=== PATIENT | female | born 2000 | race Caucasian/White ===

== ENCOUNTER 2023-01-10 08:34 | Emergency (ER) | payer BC ==
[~2023-01-10] VITALS: Ht 68 cm; Wt 61.4 kg
[2023-01-10] MEDS ORDERED: ONDANSETRON 4 MG/2 ML (SDV) Z0FRAN ONE (09:10)
[2023-01-10] MEDS ORDERED: NS IV 1000 ML 1,000 ML IV STA (09:20)
--- NOTE | 2023-01-10 09:20 | ED Abdominal Pain ---
General Chief Complaint: Abdominal/GI Problems Stated Complaint: VOMITING | DIARRHEA | ABD PAIN Nursing Triage Note: PT AMBULATES TO ROOM #2 ACCOMPANIED BY MOTHER W/CC NAUSEA, VOMITING, AND DIARRHEA WITH ONSET AT APPROX 1700 ON 01/09/23. PT REPORTS SHE HAS BEEN EXPERIENCING APPROX X2 EPSIODES OF DIARRHEA AN HOUR SINCE ONSET WITH NAUSEA/VOMITING FOLOWING FLUID INTAKE. PT REPORTS RECENT C-DIFF EXPOSURE WHILE AT WORK ON 01/05/23. Source of Information: Patient Exam Limitations: No Limitations History of Present Illness Date Seen by Provider: Jan 10, 2023 Time Seen by Provider: 08:40 Initial Comments 22yoF with no pertinent PMH coming in due to a couple days of abdominal pain, nb/nb n/v, nb diarrhea. Denies fever, focal weakness, numbness, chest pain, shortness of breath, or any other concerns. 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 She is having some lower abdominal pain that is more crampy. She thought she was on her period, but her last menstrual period was 2 and half weeks ago. Allergies and Home Medications Allergies Coded Allergies: No Known Drug Allergies (Unverified , 01/10/23) Patient Home Medication List Home Medication List Reviewed: Yes Review of Systems Review of Systems Constitutional: No fever EENTM: No Symptoms Reported Respiratory: No Symptoms Reported Cardiovascular: No Symptoms Reported Gastrointestinal: See HPI Genitourinary: No Symptoms Reported Musculoskeletal: no symptoms reported Skin: no symptoms reported Psychiatric/Neurological: No Symptoms Reported Endocrine: No Symptoms Reported Hematologic/Lymphatic: No Symptoms Reported Past Qnyrzlv-Fkftou-Urvpvi Hx Patient Social History Tobacco Use?: No Smoking Status: Never a Smoker Substance use?: No Alcohol Use?: No Immunizations Up To Date Influenza Vaccine Up-to-Date: Yes; Up-to-Date First/Initial COVID19 Vaccinat: 2021 Second COVID19 Vaccination Trell: 2021 Physical Exam Vital Signs Vital Signs - First Documented 01/10/23 08:45 Temp 37.7 Pulse 97 Resp 15 B/P (MAP) 142/91 (108) Pulse Ox 97 O2 Delivery Room Air Capillary Refill : Less Than 3 Seconds Height/Weight/BMI Height: '" Weight: lbs. oz. kg; 132.00 BMI Method: General Appearance: WD/WN, no apparent distress HEENT: PERRL/EOMI, normal ENT inspection, pharynx normal Neck: non-tender, full range of motion, supple, normal inspection Respiratory: chest non-tender, lungs clear, normal breath sounds, no respiratory distress, no accessory muscle use Cardiovascular: regular rate, rhythm, no edema, no murmur Gastrointestinal: normal bowel sounds, soft; No distended, No guarding, No rebound; tenderness Extremities: normal range of motion, non-tender, normal inspection, no pedal edema, no calf tenderness, normal capillary refill Back: normal inspection, no CVA tenderness Neurologic/Psychiatric: no motor/sensory deficits, alert, normal mood/affect Skin: normal color, warm/dry Progress/Results/Core Measures Results/Orders Lab Results Laboratory Tests Test 01/10/23 09:05 Range/Units White Blood Count 8.2 4.3-11.0 10^3/uL Red Blood Count 4.39 3.80-5.11 10^6/uL Hemoglobin 13.5 11.5-16.0 g/dL Hematocrit 39 35-52 % Mean Corpuscular Volume 89 80-99 fL Mean Corpuscular Hemoglobin 31 25-34 pg Mean Corpuscular Hemoglobin Concent 35 32-36 g/dL Red Cell Distribution Width 12.0 10.0-14.5 % Platelet Count 214 130-400 10^3/uL Mean Platelet Volume 9.9 9.0-12.2 fL Immature Granulocyte % (Auto) 0 % Neutrophils (%) (Auto) 84 H 42-75 % Lymphocytes (%) (Auto) 6 L 12-44 % Monocytes (%) (Auto) 10 0-12 % Eosinophils (%) (Auto) 0 0-10 % Basophils (%) (Auto) 0 0-10 % Neutrophils # (Auto) 6.9 1.8-7.8 10^3/uL Lymphocytes # (Auto) 0.5 L 1.0-4.0 10^3/uL Monocytes # (Auto) 0.8 0.0-1.0 10^3/uL Eosinophils # (Auto) 0.0 0.0-0.3 10^3/uL Basophils # (Auto) 0.0 0.0-0.1 10^3/uL Immature Granulocyte # (Auto) 0.0 0.0-0.1 10^3/uL Neutrophils % (Manual) 85 % Lymphocytes % (Manual) 6 % Monocytes % (Manual) 6 % Eosinophils % (Manual) 0 % Basophils % (Manual) 0 % Band Neutrophils 3 % Blood Morphology Comment NORMAL Sodium Level 136 135-145 MMOL/L Potassium Level 3.7 3.6-5.0 MMOL/L Chloride Level 108 H 98-107 MMOL/L Carbon Dioxide Level 21 21-32 MMOL/L Anion Gap 7 5-14 MMOL/L Blood Urea Nitrogen 9 7-18 MG/DL Creatinine 0.92 0.60-1.30 MG/DL Estimat Glomerular Filtration Rate 91 BUN/Creatinine Ratio 10 Glucose Level 84 70-105 MG/DL Calcium Level 9.0 8.5-10.1 MG/DL Corrected Calcium 8.9 8.5-10.1 MG/DL Total Bilirubin 0.4 0.1-1.0 MG/DL Aspartate Amino Transf (AST/SGOT) 28 5-34 U/L Alanine Aminotransferase (ALT/SGPT) 27 0-55 U/L Alkaline Phosphatase 42 40-136 U/L Total Protein 7.1 6.4-8.2 GM/DL Albumin 4.1 3.2-4.5 GM/DL Lipase 7 L 8-78 U/L Serum Test, Qualitative NEGATIVE NEGATIVE My Orders Orders - OLGA LIDIA BAPTISTE MD Ondansetron Injection (Zofran Injectio (01/10/23 09:10) Ed Iv/Invasive Line Start (01/10/23 09:20) Comprehensive Metabolic Panel (01/10/23 09:20) Lipase (01/10/23 09:20) Ua Culture If Indicated (01/10/23 09:20) Hcg,Qualitative Serum (01/10/23 09:20) Cbc With Automated Diff (01/10/23 09:20) Ct Abd/Pelv W (Appendicitis) (01/10/23 09:20) Ondansetron Injection (Zofran Injectio (01/10/23 09:30) Ns Iv 1000 Ml (Sodium Chloride 0.9%) (01/10/23 09:20) Manual Differential (01/10/23 09:05) Iohexol Injection (Omnipaque 350 Mg/Ml 1 (01/10/23 09:45) Received Contrast (Hold Metformin- Contr (01/10/23 09:45) Ns (Ivpb) (Sodium Chloride 0.9% Ivpb Bag (01/10/23 09:45) C Difficile Ag + Toxin A/B. (01/10/23 09:59) Medications Given in ED Current Medications Medications Dose Ordered Sig/Nora Route Start Time Stop Time Status Last Admin Dose Admin Ondansetron HCl 4 mg ONCE ONCE IVP 01/10/23 09:30 01/10/23 09:31 DC 01/10/23 09:29 4 MG Vital Signs/I&O 01/10/23 08:45 Temp 37.7 Pulse 97 Resp 15 B/P (MAP) 142/91 (108) Pulse Ox 97 O2 Delivery Room Air Blood Pressure Mean: 108 Progress Progress Note : Progress Note 22-year-old female with above history coming in due to vomiting, diarrhea, abdominal pain. ABCs were intact and vitals were stable on presentation. Physical exam with abdominal tenderness but no signs of peritonitis. An IV was placed and basic labs were obtained and were significant for normal white blood cell count, normal creatinine, negative test. CT abdomen pelvis consistent with diarrhea-like illness. C. difficile sent and is pending. Patient otherwise well-appearing after receiving some IV fluids and nausea medicine. I believe she stable for discharge with outpatient follow-up. She was sent home with strict return precautions. Prescription sent for nausea medicines Diagnostic Imaging Diagonstic Imaging: CT (abd/pelvis) Comments NAME: DOMENIC MCDOWELL [facility] REC#: [id number] PT STATUS: REG ER : 2000 PHYSICIAN: OLGA LIDIA BAPTISTE MD ADMIT DATE: 01/10/23/ER Draft Date of Exam:01/10/23 CT ABD/PELV W (APPENDICITIS) PROCEDURE: CT abdomen and pelvis with contrast, rule out appendicitis. TECHNIQUE: Multiple contiguous axial images were obtained through the abdomen and pelvis after the administration of intravenous contrast. All CT scans use one or more of the following dose optimizing techniques: automated exposure control, MA and/or KvP adjustment based on patient size and exam type or iterative reconstruction. INDICATION: Vomiting and diarrhea with mid abdominal pain. No prior studies are available for comparison. FINDINGS: The lung bases are clear. The liver and gallbladder are unremarkable. There is no biliary ductal dilatation. Pancreas and spleen are unremarkable. No adrenal mass is detected. Kidneys are unremarkable. There is no hydronephrosis. Aorta is nonaneurysmal. There are some fluid-filled small bowel loops throughout the abdomen as well as fluid-filled colon, particularly the right colon. The pattern does not appear to be obstructive at this time. No transition is identified. Appendix is not identified with certainty in the right lower quadrant. No inflammatory changes in the right lower quadrant are identified. No free fluid or focal fluid collection is identified. Uterus is unremarkable. Bladder is decompressed. IMPRESSION: Nonspecific fluid-filled small and large bowel consistent with enterocolitis and diarrheal state. No definite CT findings of acute appendicitis are identified. Study is otherwise unremarkable. Dictated on workstation # [id number] Dict: 01/10/23 1015 Trans: 01/10/23 1020 [id number] Interpreted by: FERDINAND ONTIVEROS MD Electronically signed by: Departure Impression Primary Impression: Vomiting and diarrhea Disposition: HOME, SELF-CARE Condition: Stable Departure-Patient Inst. Decision time for Depature: 10:45 Referrals: CONSUELO CORBETT MD (PCP/Family) Primary Care Physician Patient Instructions: Diarrhea, Adult ED Add. Discharge Instructions: It does look like you have gastroenteritis on your CT imaging. This could be from C. difficile which is pending at this time. Nausea medicines were sent to your pharmacy. If the C. difficile is positive, we will send in antibiotics and call you. Scripts Ondansetron (Ondansetron Odt) 4 Mg Tab.rapdis 4 MG SL Q6H PRN for NAUSEA/VOMITING for 5 Days, #20 TAB Prov: OLGA LIDIA BAPTISTE MD 01/10/23 Work/School Note: School/Childcare Release, Date Seen in the Emergency Department: Jan 10, 2023 Time Dismissed from Emergency Department: 10:36 Return to School: Jan 14, 2023 Restrictions: No Restrictions Work Release Form Date Seen in the Emergency Department: Jan 10, 2023 Return to Work: Jan 13, 2023 Restrictions: Return-No Vomiting(24hrs) OLGA LIDIA BAPTISTE MD Jan 10, 2023 09:20
[2023-01-10 09:27] LABS: BASOPHILS % (AUTO) 0 % (0-10); EOSINOPHILS % (AUTO) 0 % (0-10); HEMATOCRIT 39 % (35-52); HEMOGLOBIN 13.5 g/dL (11.5-16.0); LYMPHOCYTES # (AUTO) 0.5 10^3/uL (1.0-4.0); LYMPHOCYTES % (AUTO) 6 % (12-44); MEAN CORPUSCULAR HEMOGLOBIN 31 pg (25-34); MEAN CORPUSCULAR HGB CONC 35 g/dL (32-36); MEAN CORPUSCULAR VOLUME 89 fL (80-99); MEAN PLATELET VOLUME 9.9 fL (9.0-12.2); MONOCYTES # (AUTO) 0.8 10^3/uL (0.0-1.0); MONOCYTES % (AUTO) 10 % (0-12); NEUTROPHILS # (AUTO) 6.9 10^3/uL (1.8-7.8); NEUTROPHILS % (AUTO) 84 % (42-75); PLATELET COUNT 214 10^3/uL (130-400); WHITE BLOOD COUNT 8.2 10^3/uL (4.3-11.0)
[2023-01-10] MEDS ORDERED: ONDANSETRON 4 MG/2 ML (SDV) Z0FRAN IVP ONE (09:30)
[2023-01-10 09:38] LABS: ALBUMIN 4.1 GM/DL (3.2-4.5); POTASSIUM 3.7 MMOL/L (3.6-5.0)
[2023-01-10 09:40] LABS: TOTAL PROTEIN 7.1 GM/DL (6.4-8.2)
[2023-01-10 09:42] LABS: BILIRUBIN,TOTAL 0.4 MG/DL (0.1-1.0)
[2023-01-10 09:44] LABS: CREATININE SERUM 0.92 MG/DL (0.60-1.30)
[2023-01-10] MEDS ORDERED: IOHEXOL 350 MG/ML 100 ML (OMNIPAQUE 350) VIAL IV ONE (09:45)
[2023-01-10] MEDS ORDERED: HOLD METFORMIN - RECEIVED CONTRAST 20 ML VIAL IV SCH (09:45)
[2023-01-10] MEDS ORDERED: NS 100 ML (IVPB) BAG IV ONE (09:45)
[2023-01-10 09:57] LABS: BAND NEUTROPHILS 3 %; BASOPHILS % (MANUAL) 0 %; EOSINOPHILS % (MANUAL) 0 %; LYMPHOCYTES % (MANUAL) 6 %; MONOCYTES % (MANUAL) 6 %; NEUTROPHILS % (MANUAL) 85 %; RBC MORPH NORMAL
--- NOTE | 2023-01-10 10:21 | Diagnostic Imaging Report ---
PROCEDURE: CT abdomen and pelvis with contrast, rule out appendicitis. TECHNIQUE: Multiple contiguous axial images were obtained through the abdomen and pelvis after the administration of intravenous contrast. All CT scans use one or more of the following dose optimizing techniques: automated exposure control, MA and/or KvP adjustment based on patient size and exam type or iterative reconstruction. INDICATION: Vomiting and diarrhea with mid abdominal pain. No prior studies are available for comparison. FINDINGS: The lung bases are clear. The liver and gallbladder are unremarkable. There is no biliary ductal dilatation. Pancreas and spleen are unremarkable. No adrenal mass is detected. Kidneys are unremarkable. There is no hydronephrosis. Aorta is nonaneurysmal. There are some fluid-filled small bowel loops throughout the abdomen as well as fluid-filled colon, particularly the right colon. The pattern does not appear to be obstructive at this time. No transition is identified. Appendix is not identified with certainty in the right lower quadrant. No inflammatory changes in the right lower quadrant are identified. No free fluid or focal fluid collection is identified. Uterus is unremarkable. Bladder is decompressed. IMPRESSION: Nonspecific fluid-filled small and large bowel consistent with enterocolitis and diarrheal state. No definite CT findings of acute appendicitis are identified. Study is otherwise unremarkable. Dictated by: Dictated on workstation # [id number]
[2023-01-10] MEDS ORDERED: ONDA4TAB11 SL (10:35)
[2023-01-10 10:46] VITALS: BP 135/81
== END 2023-01-10 10:50 | disposition home or self-care (01) ==
LOC: ER 08:39
DX: R11.2 Nausea with vomiting, unspecified (principal); R19.7 Diarrhea, unspecified; R10.9 Unspecified abdominal pain
CPT/HCPCS: 36415; 74177; 80053; 83690; 84703; 85007; 85027; 87324; 87449